=== PATIENT | male | born 1975 | race Caucasian/White ===

== ENCOUNTER 2017-01-20 14:37 | Emergency (ER) | payer OTHER ==
[~2017-01-20] VITALS: Ht 170.2 cm; Wt 120.2 kg
[2017-01-20 14:46] VITALS: BP 110/76
--- NOTE | 2017-01-20 15:26 | NUR ---
Patient ambulated to bed 1. RN evaluating patient at bedside.
--- NOTE | 2017-01-20 15:31 | NUR ---
Dr. See evaluating patient at bedside.
[2017-01-20] MEDS ORDERED: IBUPROFEN 800 MG TAB PO ONE (15:40)
== END 2017-01-20 15:57 | disposition home or self-care (01) ==
LOC: MED 14:37
DX: S92.351A Displaced fracture of fifth metatarsal bone, right foot, initial encounter for closed fracture (principal); W22.03XA Walked into furniture, initial encounter; Y93.89 Activity, other specified; Y92.89 Other specified places as the place of occurrence of the external cause; Y99.8 Other external cause status
CPT/HCPCS: 73130; 99284